=== PATIENT | male | born 1985 | race Caucasian/White ===

== ENCOUNTER 2020-02-03 10:32 | Emergency (ER) | payer SELFPAY ==
[~2020-02-03] VITALS: Ht 160 cm; Wt 77.1 kg
--- NOTE | 2020-02-03 10:34 | NUR ---
Patient to ER bed H1 to gown for evaluation. Side rails up.
[2020-02-03 10:35] VITALS: BP_SYST 110
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
--- NOTE | 2020-02-03 10:42 | NUR ---
ER at bedside examining patient.
[2020-02-03] MEDS ORDERED: DIPH-TET-PERTUS Vaccine 0.5 ML VIAL (ADACEL) I.M. ONE (10:45)
[2020-02-03] MEDS ORDERED: BACITRACIN/POLYMYXIN B SULFATE 30 GM TOPICAL OINT. TP SCH ×2 (10:45)
[2020-02-03 10:50] VITALS: BP_SYST 110
--- NOTE | 2020-02-03 10:52 | NUR ---
Patient given written and verbal discharge instructions and verbalizes understanding. ER MD discussed with patient the results and treatment provided. Patient in stable condition. ID arm band removed. intact and dressing Patient educated on pain management and to follow up with PMD. Pain Scale 3/10. Opportunity for questions provided and answered. Medication side effect fact sheet provided. pt released to the custody of [facility]
[2020-02-03] MEDS ORDERED: BACITRACIN 1 GM OINT TP ONE (11:00)
== END 2020-02-03 10:52 ==
LOC: SED 10:32
DX: S60.811A Abrasion of right wrist, initial encounter (principal); W22.8XXA Striking against or struck by other objects, initial encounter; Y93.89 Activity, other specified; Y92.89 Other specified places as the place of occurrence of the external cause; Y99.8 Other external cause status
CPT/HCPCS: 90715; 99283